=== PATIENT | female | born 1945 | race Caucasian/White ===

== ENCOUNTER 2017-03-05 08:54 | Outpatient (CLI) | payer MEDICARE ==
[2017-03-05 09:44] LABS: Anion Gap 10 mmol/L (10-20); BUN (Urea Nitrogen) 13 mg/dL (9.8-20.1); Calc. Creatinine Clearance 0 mL/min (70-130); Calcium 9.1 mg/dL (7.8-10.44); Carbon Dioxide 25 mmol/L (23-31); Chloride 108 mmol/L (98-107); Estimated GFR-MDRD 65; Uric Acid 6.7 mg/dL (2.6-6.0)
[2017-03-05 10:11] LABS: Bilirubin Negative (Negative); Blood, Urine Negative (Negative); Glucose, Urine (Dipstick) Negative (Negative); Ketone, Urine Negative (Negative); Nitrite Negative (Negative); Protein, Urine (Dipstick) Negative (Neg-Trace); Urobilinogen 0.2 mg/dL (0.2-1.0)
[2017-03-05 10:13] LABS: Bacteria/HPF None Seen HPF (None Seen); Hyaline Casts/LPF 0-3 HYALINE CAST LPF (0-3 Hyaline); RBC/HPF None Seen HPF (0-3); Squamous Epithelial None Seen HPF (0-3)
--- NOTE | 2017-03-05 10:57 | RAD ---
SUPINE AP ABDOMEN: Date: 03-05-17 History: Calculus of kidney. Comparison: 08-24-16 FINDINGS: Multiple surgical clips again overlie the pelvis. Right sided ostomy is again noted. Calcification ag ain overlies the right renal shadow which may be related to a right renal calculus. No additional liza picious calcifications are seen. There is left convex rotoscoliosis of the thoracolumbar spine. No ot her interval change. IMPRESSION: 1. Right nephrolithiasis. 2. Post-surgical changes of the pelvis. 3. Left convex scoliosis thoracolumbar spine. POS: [facility]
== END 2017-03-05 08:55 | disposition home or self-care (01) ==
LOC: RAD 08:54
PROVIDERS: ATTEND Urology
DX: N20.0 Calculus of kidney (principal); R35.0 Frequency of micturition; M41.9 Scoliosis, unspecified; Z98.890 Other specified postprocedural states
CPT/HCPCS: 36415; 74000; 80048; 81001; 84550; 87086

== ENCOUNTER 2019-04-21 09:34 | Outpatient (CLI) | payer MEDICARE ==
--- NOTE | 2019-04-21 10:01 | RAD ---
EXAM: Single view of the abdomen HISTORY: Calculus of the kidney COMPARISON: 04/12/2018 FINDINGS: Single view of the abdomen shows a nonspecific, nonobstructive bowel gas pattern. A very ti ny 2-3 microcalcification is seen in the midportion of the right kidney. The bones are unremarkable. IMPRESSION: Possible small right kidney stone.
== END 2019-04-21 09:35 | disposition home or self-care (01) ==
LOC: RAD 09:34
PROVIDERS: ATTEND Urology
DX: N20.0 Calculus of kidney (principal)
CPT/HCPCS: 36415; 74018; 80048; 81001; 87086